=== PATIENT | male | born 1955 | race Caucasian/White ===

== ENCOUNTER 2018-07-31 16:47 | Emergency (ER) | payer MEDICARE ==
[~2018-07-31] VITALS: Ht 188 cm; Wt 145.4 kg
[2018-07-31 16:57] VITALS: BP 172/90
[2018-07-31] MEDS ORDERED: ketorolac tromethamine 15mg/ml inj. IM ONE (17:20)
[2018-07-31] MEDS ORDERED: orphenadrine citrate 60mg/2ml inj. IM ONE (17:20)
[2018-07-31] MEDS ORDERED: METH-360 PO (18:14)
[2018-07-31] MEDS ORDERED: IBUP-1985 PO (18:14)
== END 2018-07-31 19:02 | disposition home or self-care (01) ==
LOC: ER 16:48
DX: M54.5 Low back pain (principal); G89.29 Other chronic pain; L90.5 Scar conditions and fibrosis of skin; M53.86 Other specified dorsopathies, lumbar region; W18.09XA Striking against other object with subsequent fall, initial encounter; Y93.89 Activity, other specified; Y92.89 Other specified places as the place of occurrence of the external cause; Y99.8 Other external cause status
CPT/HCPCS: 72110; 96372; 99283; J1885; J2360

== ENCOUNTER 2018-10-03 07:11 | Day surgery (SDC) | payer MEDICARE ==
[~2018-10-03] VITALS: Ht 185.4 cm; Wt 125.8 kg
[~2018-10-03 07:11] MED LIST changes: -LACT10SO PO; -METF500T PO; -MULT-955 PO; -PANT-47 PO; -POLY17PO10 PO; -THIA100T66 PO
[2018-10-03] MEDS ORDERED: albumin 25% 100mL bottle x 1 IV PRN (07:40)
[2018-10-03 07:51] VITALS: BP 111/63
[2018-10-03] MEDS ORDERED: PROP10TA10 PO (07:57)
[2018-10-03] MEDS ORDERED: PANT-47 PO (07:57)
[2018-10-03] MEDS ORDERED: MULT-955 PO (07:57)
[2018-10-03] MEDS ORDERED: LACT1CAP26 PO (07:57)
[2018-10-03] MEDS ORDERED: SPIR25TA PO (07:57)
[2018-10-03] MEDS ORDERED: RIFA550T PO (07:57)
[2018-10-03] MEDS ORDERED: THIA100T66 PO (07:57)
[2018-10-03] MEDS ORDERED: METF500T PO (07:57)
[2018-10-03] MEDS ORDERED: FOLI1TAB16 PO (07:57)
[2018-10-03] MEDS ORDERED: FURO-150 PO (07:57)
[2018-10-03] MEDS ORDERED: LACT10SO PO (07:57)
[2018-10-03 08:44] VITALS: BP 102/57
[2018-10-03 09:00] VITALS: BP 108/58
[2018-10-03 09:15] VITALS: BP 110/54
[2018-10-03 09:17] VITALS: BP 97/58
[2018-10-03] MEDS ORDERED: POLY17PO10 PO (21:37)
== END 2018-10-03 09:25 | disposition home or self-care (01) ==
LOC: SSTAY O 07:11
PROVIDERS: ATTEND Radiology Diagnostic Radiology
DX: K70.31 Alcoholic cirrhosis of liver with ascites (principal); E11.9 Type 2 diabetes mellitus without complications; Z79.899 Other long term (current) drug therapy; Z98.890 Other specified postprocedural states
CPT/HCPCS: 49083; C1729; J3490

== ENCOUNTER 2018-10-03 22:34 | Emergency (ER) | payer MEDICARE ==
[~2018-10-03 22:34] MED LIST changes: +LACT10SO PO; +METF500T PO; +MULT-955 PO; +PANT-47 PO; +POLY17PO10 PO; +THIA100T66 PO
== END 2018-10-03 23:19 | disposition left against medical advice (07) ==
LOC: ER 22:34
DX: T81.89XA Other complications of procedures, not elsewhere classified, initial encounter (principal); Z53.21 Procedure and treatment not carried out due to patient leaving prior to being seen by health care provider; Y92.89 Other specified places as the place of occurrence of the external cause

== ENCOUNTER → 2018-10-03 | Emergency (ER) | payer MEDICARE ==
[~2018-10-03] VITALS: Ht 185.4 cm; Wt 126.0 kg
[~2018-10-03] MED LIST: FOLI1TAB16 PO; FURO-150 PO; LACT10SO PO; LACT10SO32 PO; LACT1CAP26 PO; METF500T PO; METF500T7 PO; MULT-1179 PO; MULT-955 PO; PANT-47 PO; PANT40TA4 PO; POLY17PO10 PO; PROP10TA10 PO; RIFA550T PO; SPIR25TA PO; THIA100T66 PO; thiamine tablet PO
[2018-10-03 18:51] VITALS: BP 103/50
== END | disposition home or self-care (01) ==
LOC: ER 18:05
DX: K72.90 Hepatic failure, unspecified without coma (principal); K59.00 Constipation, unspecified; G89.29 Other chronic pain; Z98.890 Other specified postprocedural states; F10.20 Alcohol dependence, uncomplicated; Z79.2 Long term (current) use of antibiotics; Z79.899 Other long term (current) drug therapy; Y90.9 Presence of alcohol in blood, level not specified
CPT/HCPCS: 76705; 99284